=== PATIENT | female | born 1985 | race Caucasian/White ===

== ENCOUNTER 2019-06-30 17:28 | Emergency (ER) | payer MEDICAID ==
[~2019-06-30] VITALS: Ht 172.7 cm; Wt 78.0 kg
[2019-06-30 17:46] VITALS: Ht 172.7 cm; Wt 78.0 kg
[2019-06-30 18:46] VITALS: BP 121/77
== END 2019-06-30 18:46 | disposition home or self-care (01) ==
LOC: ED 17:28
DX: K04.7 Periapical abscess without sinus (principal)